=== PATIENT | female | born 1985 | race Two or more races ===

== ENCOUNTER 2019-06-26 16:39 | Emergency (ER) | payer MEDICAID ==
[~2019-06-26] VITALS: Ht 162.6 cm; Wt 60.0 kg
[2019-06-26] MEDS ORDERED: KETOROLAC 60MG/2ML VIAL IM ONE (18:00)
[2019-06-26] MEDS ORDERED: BACITRACIN ZINC OINT UDPKT TOP ONE (19:30)
[2019-06-26 19:35] VITALS: BP 128/63
== END 2019-06-26 19:40 | disposition home or self-care (01) ==
LOC: ER 16:39
DX: S16.1XXA Strain of muscle, fascia and tendon at neck level, initial encounter (principal); S86.912A Strain of unspecified muscle(s) and tendon(s) at lower leg level, left leg, initial encounter; S20.211A Contusion of right front wall of thorax, initial encounter; Z98.890 Other specified postprocedural states; V49.88XA Car occupant (driver) (passenger) injured in other specified transport accidents, initial encounter; Y93.89 Activity, other specified; Y92.89 Other specified places as the place of occurrence of the external cause; Y99.8 Other external cause status
CPT/HCPCS: 71045; 72040; 73030; 81025; 96372; 99284; J1885